=== PATIENT | male | born 1970 | race Caucasian/White ===

== ENCOUNTER 2018-07-09 01:00 | Inpatient (IN) | payer BC ==
--- NOTE | 2018-07-09 01:36 | C.PDOC ---
History Of Present Illness 48 year old male with PMHx of HLD, HTN, pre diabetes, presents to the ED c/o abdominal pain associated with nausea that started tonight at 20:30. Patient reports he ate [place] tonight and drank sparkling water, reporting symptoms brianna rtly after drinking the water. Patient states having a normal bowel movement today. Patient denies fever, chills, vomit, diarrhea, rash, headache, SOB, CP, weakness, numbness. <Paulette Lucero - Last Filed: 07/09/18 06:21> <Brandyn Beltrán - Last Filed: 07/09/18 06:13> History Per: Patient History/Exam Limitations: no limitations Onset/Duration Of Symptoms: Hrs (20:30) Context: Food Location Of Pain/Discomfort: Epigastric Radiation Of Pain To:: None Quality Of Discomfort: "Pain" Associated Symptoms: Nausea. denies: Vomiting, Diarrhea, Urinary Symptoms Exacerbating Factors: Food Last Bowel Movement: Today Recent travel outside of the [place]: No Additional History Per: Patient <Paulette Lucero - Last Filed: 07/09/18 06:21> Time Seen by Provider: 07/09/18 01:32 Chief Complaint (Nursing): Abdominal Pain Past Medical History Vital Signs: Last Vital Signs Temp 98.4 F 07/09/18 05:23 Pulse 85 07/09/18 05:23 Resp 20 07/09/18 05:23 BP 130/84 07/09/18 05:23 Pulse Ox 84 L 07/09/18 05:48 <Brandyn Beltrán - Last Filed: 07/09/18 06:13> Reviewed: Historical Data, Nursing Documentation, Vital Signs Vital Signs: Last Vital Signs Temp 98.2 F 07/09/18 01:10 Pulse 74 07/09/18 01:10 Resp 18 07/09/18 01:10 BP 163/97 H 07/09/18 01:10 Pulse Ox 84 L 07/09/18 01:10 Primary Care Provider: Cristofer Kelley - Medical History PMH: HTN, Hyperlipidemia Surgical History: No Surg Hx Family History: States: Unknown Family Hx - Social History Hx Alcohol Use: No Hx Substance Use: No <Paulette Lucero - Last Filed: 07/09/18 06:21> Review Of Systems Constitutional: Negative for: Fever, Chills Cardiovascular: Negative for: Chest Pain Respiratory: Negative for: Shortness of Breath Gastrointestinal: Positive for: Nausea, Abdominal Pain. Negative for: Vomiting, Diarrhea Skin: Negative for: Rash Neurological: Negative for: Weakness, Numbness, Headache, Dizziness <JazmineAbelardopierre - Last Filed: 07/09/18 06:21> Physical Exam - Physical Exam Appears: Non-toxic, No Acute Distress Skin: Normal Color, Warm, Dry Head: Atraumatic, Normacephalic Eye(s): bilateral: Normal Inspection, PERRL Ear(s): Bilateral: Normal Nose: No Discharge Oral Mucosa: Moist Tongue: Normal Appearing Lips: Normal Appearing Throat: No Erythema, No Exudate Neck: Normal ROM, Supple Chest: Symmetrical Cardiovascular: Rhythm Regular Respiratory: Normal Breath Sounds, No Rales, No Rhonchi, No Wheezing Gastrointestinal/Abdominal: Soft, Tenderness ( epigastric), No Distention, No Guarding, No Rebound Back: No CVA Tenderness Extremity: Normal ROM, No Tenderness, No Swelling Neurological/Psych: Oriented x3, Normal Speech, Normal Cognition, Normal Motor, Normal Sensation Gait: Steady <Paulette Lucero - Last Filed: 07/09/18 06:21> ED Course And Treatment - Laboratory Results Result Diagrams: 07/09/18 02:45 07/09/18 02:45 Lab Results: Total Bilirubin 0.9 mg/dL (0.2-1.3) 07/09/18 02:45 AST 59 U/L (17-59) 07/09/18 02:45 ALT 74 U/L (21-72) H 07/09/18 02:45 Alkaline Phosphatase 73 U/L (38-126) 07/09/18 02:45 Total Protein 8.6 g/dL (6.3-8.3) H 07/09/18 02:45 Albumin 4.9 g/dL (3.5-5.0) 07/09/18 02:45 Globulin 3.7 gm/dL (2.2-3.9) 07/09/18 02:45 Albumin/Globulin Ratio 1.3 (1.0-2.1) 07/09/18 02:45 Lipase 105 U/L (23-300) 07/09/18 02:45 <Brandyn Beltrán - Last Filed: 07/09/18 06:13> - Laboratory Results Result Diagrams: 07/09/18 02:45 07/09/18 02:45 O2 Sat by Pulse Oximetry: 84 Pulse Ox Interpretation: Normal - CT Scan/US CT abd/pelvis Other Rad Studies (CT/US): Read By Radiologist, Radiology Report Reviewed CT/US Interpretation: CT SCAN OF THE ABDOMEN AND PELVIS WITH CONTRAST. CLINICAL HISTORY: Epigastric pain. TECHNIQUE: Multiple axial and coronal CT images were obtained through the abdomen and pelvis after administration of intravenous contrast material. COMMENTS: Impacted gallstone in the neck of the distended, diffusely thickened enhancing gallbladder. The liver is of uniform attenuation without mass or defect. There is no intra or extrahepatic biliary ductal dilatation. The spleen is normal. The pancreas is of normal contour and attenuation characteristics. There is no evidence of adrenal mass. Both kidneys demonstrate prompt and equal nephrograms. The kidneys are normal in size, shape and configuration. There is no evidence of renal or ureteral mass. No renal or ureteral calculi are identified. There is no hydroureter or hydronephrosis. No evidence for appendicitis. There is no bowel wall thickening. No evidence for small or large bowel obstruction. There is no evidence of abdominal ascites or lymphadenopathy. There is no evidence of intrinsic or extrinsic bladder mass. There is no pelvic ascites or lymphadenopathy. Images of the lung bases show no evidence of pleural or parenchymal mass. There are no pleural effusions. The bony structures are free of lytic or blastic lesions. IMPRESSION: Mild changes of acute calculous cholecystitis. Thank you for your kind referral of this patient. . Electronically signed on July 09, 2018 4:52:49 AM EDT by: Duane Koch M.D., Certified by ABR, MSK, Neuroradiology. <Paulette Lucero - Last Filed: 07/09/18 06:21> Medical Decision Making Medical Decision Making: Plan: * Labs ordered * Pepcid 20 mg IVP * Zofran 8 mg IVP * patient reassessed- still in pain * Toradol IM given * labs reviewed * CT with IV contrast ordered pain reassessed: improved CT reviewed and revealed acute calculous cholecystitis Patient informed-Surgery consulted Patient will be admitted for further management Patient verbalized understanding and is stable <Paulette Lucero - Last Filed: 07/09/18 06:21> Disposition Discussed With Dr.: Srinivasa Sosa Comment: acceptd the pt [facility] is service and took over the care at 6:13AM Doctor Will See Patient In The: Hospital Counseled Patient/Family Regarding: Studies Performed, Diagnosis - Disposition Disposition Time: 06:13 - POA Present On Arrival: None Location Of Wound: acute cholecystitis <Brandyn Beltrán - Last Filed: 07/09/18 06:13> Counseled Patient/Family Regarding: Studies Performed, Diagnosis <Paulette Lucero - Last Filed: 07/09/18 06:21> - Disposition Disposition: HOSPITALIZED Condition: STABLE Forms: CAL - [employer] (Tunisian) - Clinical Impression Clinical Impression: Abdominal pain, Cholecystitis - PA / PACKAGING CLERK / Resident Statement MD/DO has reviewed & agrees with the documentation as recorded. - Scribe Statement The provider has reviewed the documentation as recorded by the Scribe Brent Carlos All medical record entries made by the Scribe were at my direction and personally dictated by me. I have reviewed the chart and agree that the record accurately reflects my personal performance of the history, physical exam, medical decision making, and the department course for this patient. I have also personally directed, reviewed, and agree with the discharge instructions and disposition. <Paulette Lucero - Last Filed: 07/09/18 06:21> Decision To Admit - Pt Status Changed To: Hospital Disposition Of: Inpatient - Admit Certification Admit to Inpatient:: After my assessment, the patient will require hospitalization for at least two midnights. This is because of the severity of symptoms shown, intensity of services needed, and/or the medical risk in this patient being treated as an outpatient. - InPatient: Physician Admission Certification:: After my assessment, the patient will require hospitalization for at least two midnights. This is because of the severity of symptoms shown, intensity of services needed, and/or the medical risk in this patient being treated as an outpatient. - . Bed Request Type: Regular Admitting Physician: Srinivasa Sosa <Brandyn Beltrán - Last Filed: 07/09/18 06:13> <Paulette Lucero - Last Filed: 07/09/18 06:21> - . Patient Diagnosis: Abdominal pain
[2018-07-09 02:51] LABS: BASO % 0.4 % (0.0-2.0); EOS # 0.1 K/uL (0.0-0.7); EOS % 1.4 % (0.0-4.0); HEMOGLOBIN 14.4 g/dL (12.0-18.0); LYMPH # 1.4 K/uL (1.0-4.3); LYMPH % 14.3 % (20.0-40.0); MEAN CELL VOLUME 84.6 fL (80.0-94.0); MEAN CORPUSCULAR HEMOGLOBIN 28.8 pg (27.0-31.0); MONO # 0.6 K/uL (0.0-0.8); MONO % 6.3 % (0.0-10.0); NEUT # 7.8 K/uL (1.8-7.0); NEUT % 77.6 % (50.0-75.0); RBC 5.01 Mil/uL (4.40-5.90); WHITE BLOOD COUNT 10.1 K/uL (4.8-10.8)
[2018-07-09 03:04] LABS: ALB/GLOB RATIO 1.3 (1.0-2.1); ALBUMIN 4.9 g/dL (3.5-5.0); ALT/SGPT 74 U/L (21-72); AST/SGOT 59 U/L (17-59); BLOOD UREA NITROGEN 14 mg/dL (9-20); CALCIUM 9.3 mg/dl (8.6-10.4); GFR NON-AFRICAN AMERICAN > 60; LIPASE 105 U/L (23-300)
[2018-07-09] MEDS ORDERED: Sodium Chloride 0.9% 1,000 ML IV ONE ×2 (03:24→06:17)
[2018-07-09] MEDS ORDERED: Iodixanol 320 MG/ML 100 ML BOTTLE IV ONE (03:33)
[2018-07-09] MEDS ORDERED: Sodium Chloride 0.9% 1,000 ML ONE ×2 (03:34→06:32)
[2018-07-09] MEDS ORDERED: Piperacillin/Tazobact 3.375 gm 100 ML IVPB STA (06:19)
[2018-07-09] MEDS ORDERED: Piperacillin/Tazobact 3.375 gm 100 ML IVPB ONE (06:32)
[2018-07-09] MEDS ORDERED: HYDROmorphone 1 mg/ml ISec IVP PRN ×2 (06:34→17:59)
--- NOTE | 2018-07-09 06:50 | CP.PCM.CON ---
History of Present Illness - History of Present Illness History of Present Illness: Surgery Consult Note- Dr. Lora Reason for Consult: r/o Acute Cholecystitis 48M pmhx significant for HTN, HLD, Gout, LEXIE on CPAP at night, Hypothyroidism, presents to [facility] ER with mid-epigastric pain that started late last night that woke him up from sleep. Similar pain in the past about one year ago. Pain is worsened with fatty foods i.e pizza. Last night patient had salmon. Denies fevers, chills, chest pain, shortness of breath. Denies recent sick contacts, foreign travel. Denies changes in bowel, bladder habits. 12 pt ROS conducted, negative otherwise stated above PMH: stated above PSH: TURP ALL: NKDA SocialHx: denies tobacco, etoh, recreational drug use FH: non-contributory Review of Systems - Review of Systems All systems: reviewed and no additional remarkable complaints except - Constitutional Constitutional: As Per HPI Past Patient History - Past Social History Smoking Status: Never Smoked - CARDIAC Hx Hypertension: Yes - MUSCULOSKELETAL/RHEUMATOLOGICAL Hx Gout: Yes - PSYCHIATRIC Hx Substance Use: No Meds Allergies/Adverse Reactions: Allergies Allergy/AdvReac Type Severity Reaction Status Date / Time No Known Allergies Allergy Verified 07/09/18 01:08 - Medications Medications: Current Medications Acetaminophen (Tylenol 325mg Tab) 650 mg PO Q4H PRN PRN Reason: Fever >100.4 F Hydromorphone HCl (Dilaudid) 1 mg IVP Q4H PRN PRN Reason: Pain, severe (8-10) Sodium Chloride (Sodium Chloride 0.9%) 1,000 mls @ 100 mls/hr IV .Q10H ONE Stop: 07/09/18 16:16 Last Admin: 07/09/18 06:38 Dose: 100 mls/hr Piperacillin Sod/Tazobactam Sod (Zosyn 3.375 In Ns 100ml) 100 mls @ 200 mls/hr IVPB STAT STA; Protocol Stop: 07/09/18 06:48 Last Admin: 07/09/18 06:37 Dose: 200 mls/hr Ondansetron HCl (Zofran Inj) 4 mg IVP Q4 PRN PRN Reason: Nausea/Vomiting Physical Exam - Eye Exam Eye Exam: EOMI. absent: Scleral icterus - ENT Exam ENT Exam: Mucous Membranes Moist - Respiratory Exam Respiratory Exam: NORMAL BREATHING PATTERN. absent: Accessory Muscle Use, Respiratory Distress - Cardiovascular Exam Cardiovascular Exam: REGULAR RHYTHM. absent: Bradycardia, Tachycardia - GI/Abdominal Exam GI & Abdominal Exam: Soft, Tenderness (tender to mid-epigastrum and RUQ). absent: Distended, Firm, Guarding, Hernia - Neurological Exam Neurological exam: Alert, Oriented x3 - Psychiatric Exam Psychiatric exam: Normal Affect - Skin Skin Exam: Intact, Warm Results - Vital Signs Recent Vital Signs: Last Vital Signs Temp 98.4 F 07/09/18 05:23 Pulse 85 07/09/18 05:23 Resp 20 07/09/18 05:23 BP 130/84 07/09/18 05:23 Pulse Ox 84 L 07/09/18 06:21 - Labs Result Diagrams: 07/09/18 02:45 07/09/18 02:45 Labs: Laboratory Results - last 24 hr 07/09/18 07/09/18 02:45 02:45 WBC 10.1 RBC 5.01 Hgb 14.4 Hct 42.4 MCV 84.6 MCH 28.8 MCHC 34.0 RDW 13.0 Plt Count 242 MPV 9.0 Neut % (Auto) 77.6 H Lymph % (Auto) 14.3 L [place] % (Auto) 6.3 Eos % (Auto) 1.4 Baso % (Auto) 0.4 Neut # (Auto) 7.8 H Lymph # (Auto) 1.4 [place] # (Auto) 0.6 Eos # (Auto) 0.1 Baso # (Auto) 0.0 Sodium 139 Potassium 3.9 Chloride 99 Carbon Dioxide 26 Anion Gap 17 BUN 14 Creatinine 1.0 Est GFR ( Amer) > 60 Est GFR (Non-Af Amer) > 60 Random Glucose 143 H Calcium 9.3 Total Bilirubin 0.9 AST 59 ALT 74 H Alkaline Phosphatase 73 Total Protein 8.6 H Albumin 4.9 Globulin 3.7 Albumin/Globulin Ratio 1.3 Lipase 105 Assessment & Plan - Assessment and Plan (Free Text) Assessment: 48M w/ Symptomatic Cholelithasis vs Acute Cholecystitis Plan: - NPO - IVF/Abx - Analgesia and anti-emetic PRN - Plan for Cholecystectomy tomorrow - f/u ABUS - d/w Dr. Lora Surgical attending [facility] PGY2
[2018-07-09] MEDS: Lactated Ringer's 1,000 ML IV SCH ×2 (07:27→15:39)
[2018-07-09] MEDS ORDERED: Levothyroxine 25 MCG TAB PO SCH (10:15)
--- NOTE | 2018-07-09 10:48 | US ---
Date of service: 07/09/2018 HISTORY: r/o Acute Tier[place] COMPARISON: Comparison is made with the previous CT of the abdomen and pelvis dated 07/09/2018 TECHNIQUE: Sonographic evaluation of the abdomen. FINDINGS: LIVER: Measures 15.9 cm. Heterogeneous increased echogenicity of the liver parenchyma. No mass. No intrahepatic bile duct dilatation. GALLBLADDER: Gallstones and sludge noted. The gallbladder wall is thick measures up to 3.9 millimeter. There is no sonographic Hoyt's sign noted during the exam. COMMON BILE DUCT: Measures 4.4. mm. . PANCREAS: Limited evaluation of the pancreas which obscured by overlying bowel gas. RIGHT KIDNEY: Measures 11.6 x 5 x 5.6cm. Normal echogenicity. No calculus, mass, or hydronephrosis. LEFT KIDNEY: Measures 12 x 5.2 x 5.3cm. Normal echogenicity. No calculus, mass, or hydronephrosis. SPLEEN: Normal in size and contour. No mass. AORTA: No aneurysmal dilatation. IVC: Unremarkable. OTHER FINDINGS: None. IMPRESSION: Gallstones and sludge associated with diffuse gallbladder wall thickening. The possibility of acute cholecystitis should be considered. Echogenic liver suggestive of hepatic steatosis.
[2018-07-09] MEDS: Levothyroxine 25 MCG TAB PO SCH (11:26)
--- NOTE | 2018-07-09 12:50 | RAD ---
Date of service: 07/09/2018 HISTORY: pre-op COMPARISON: No prior. TECHNIQUE: 1 view obtained. FINDINGS: LUNGS: No active pulmonary disease. PLEURA: No significant pleural effusion identified, no pneumothorax apparent. CARDIOVASCULAR: No aortic atherosclerotic calcification present. Normal cardiac size. No pulmonary vascular congestion. OSSEOUS STRUCTURES: No significant abnormalities. VISUALIZED UPPER ABDOMEN: Normal. OTHER FINDINGS: None. IMPRESSION: No active disease.
[2018-07-09] MEDS: Piperacill/Tazo 3.375gm in Dex 3.375 GM/50 ML BAG IVPB SCH ×2 (13:00→17:52)
--- NOTE | 2018-07-09 15:37 | CT ---
Date of service: 07/09/2018 PROCEDURE: CT Abdomen and Pelvis with contrast HISTORY: epigastric abd pain COMPARISON: No prior similar study available for comparison. TECHNIQUE: Contrast dose: 100 mL of Visipaque 320 intravenously. Radiation dose: Total exam DLP = 860.54 mGy-cm. This CT exam was performed using one or more of the following dose reduction techniques: Automated exposure control, adjustment of the mA and/or kV according to patient size, and/or use of iterative reconstruction technique. FINDINGS: LOWER THORAX: No evidence of acute pathology or pleural effusion. LIVER: Unremarkable. No gross lesion or ductal dilatation. GALLBLADDER AND BILE DUCTS: The gallbladder is distended contains gallstones and demonstrate moderate diffuse wall thickening. The possibility of acute cholecystitis should be considered. PANCREAS: Unremarkable. No gross lesion or ductal dilatation. SPLEEN: Unremarkable. ADRENALS: Unremarkable. No mass. KIDNEYS AND URETERS: Unremarkable. No hydronephrosis. No solid mass. VASCULATURE: Unremarkable. No aortic aneurysm. No aortic atherosclerotic calcification or mural plaque present. BOWEL: Unremarkable. No obstruction. No gross mural thickening. APPENDIX: Normal appendix. PERITONEUM: Unremarkable. No free fluid. No free air. LYMPH NODES: Unremarkable. No enlarged lymph nodes. BLADDER: Unremarkable. REPRODUCTIVE: Unremarkable. BONES: No acute fracture. OTHER FINDINGS: None. IMPRESSION: Gallstone and moderate diffuse gallbladder wall thickening. The possibility of acute cholecystitis should be considered. No evidence of intrahepatic or extrahepatic biliary ductal dilatation. Preliminary report was submitted by [facility] Radiology contains concordant findings
--- NOTE | 2018-07-09 22:06 | CP.PCM.HP ---
Present on Admission - Present on Admission Any Indicators Present on Admission: No Past Patient History - Past Social History Smoking Status: Never Smoked - CARDIAC Hx Hypertension: Yes - MUSCULOSKELETAL/RHEUMATOLOGICAL Hx Gout: Yes - PSYCHIATRIC Hx Substance Use: No Meds Allergies/Adverse Reactions: Allergies Allergy/AdvReac Type Severity Reaction Status Date / Time No Known Allergies Allergy Verified 07/09/18 01:08 Results - Vital Signs Recent Vital Signs: Last Vital Signs Temp 99.8 F H 07/09/18 15:00 Pulse 73 07/09/18 15:00 Resp 20 07/09/18 15:00 BP 112/67 07/09/18 17:50 Pulse Ox 97 07/09/18 15:00 - Labs Result Diagrams: 07/09/18 02:45 07/09/18 02:45 Labs: Laboratory Results - last 24 hr 07/09/18 07/09/18 07/09/18 02:45 02:45 11:04 WBC 10.1 RBC 5.01 Hgb 14.4 Hct 42.4 MCV 84.6 MCH 28.8 MCHC 34.0 RDW 13.0 Plt Count 242 MPV 9.0 Neut % (Auto) 77.6 H Lymph % (Auto) 14.3 L [place] % (Auto) 6.3 Eos % (Auto) 1.4 Baso % (Auto) 0.4 Neut # (Auto) 7.8 H Lymph # (Auto) 1.4 [place] # (Auto) 0.6 Eos # (Auto) 0.1 Baso # (Auto) 0.0 Sodium 139 Potassium 3.9 Chloride 99 Carbon Dioxide 26 Anion Gap 17 BUN 14 Creatinine 1.0 Est GFR ( Amer) > 60 Est GFR (Non-Af Amer) > 60 Random Glucose 143 H Calcium 9.3 Total Bilirubin 0.9 AST 59 ALT 74 H Alkaline Phosphatase 73 Total Protein 8.6 H Albumin 4.9 Globulin 3.7 Albumin/Globulin Ratio 1.3 Lipase 105 Blood Type O POSITIVE Antibody Screen Negative
[2018-07-10] MEDS: Lactated Ringer's 1,000 ML IV SCH ×2 (00:10→08:23)
[2018-07-10] MEDS: Piperacill/Tazo 3.375gm in Dex 3.375 GM/50 ML BAG IVPB SCH ×5 (00:21→23:09)
--- NOTE | 2018-07-10 05:42 | HP ---
CHIEF COMPLAINT: Right upper quadrant abdominal pain. HISTORY OF PRESENT ILLNESS: This is a 48-year-old [place] male with history of hypertension. He is obese. He came in because of right upper quadrant pain. According to the patient, his pain started yesterday. It was too sharp and intense, /10. The patient called, came to the emergency room immediately and he is hospitalized. The patient only remembers one episode few months ago. He had nausea. No vomiting. He has fever, chills, and rigors. He has sweating, diaphoresis, and dizziness. He denies any dysuria, hematuria, or pyuria. He denies any polyuria, polydipsia, or polyphagia. The patient woke up from sleep with this pain. The patient's pain is worse with fatty foods. The patient denies any cough, sore throat, or runny nose. The patient has fevers, chills, rigors, and body aches. PAST MEDICAL HISTORY: Hypertension. SOCIAL HISTORY: He is nonsmoker. Social ETOH user. CURRENT MEDICATIONS: He is on levothyroxine, Zyloprim, Coreg, and Lipitor. FAMILY HISTORY: Noncontributory. PHYSICAL EXAMINATION: GENERAL: A middle-aged male in no acute distress. VITAL SIGNS: Blood pressure 117/72, pulse 80, respiratory rate 16, temperature 102.8. SKIN: No rashes. No bruises. No bruises. No purpura. No petechiae. No ecchymosis. HEENT: Atraumatic and normocephalic. Negative pallor. Negative jaundice. Extraocular movements are intact. NECK: Supple. No JVD. No lymph nodes. No thyromegaly. CHEST WALL: Bilateral symmetrical expansion. No tenderness. LUNGS: Clear. CARDIOVASCULAR SYSTEM: No heave. No thrill. S1 and S2, regular. ABDOMEN: Right upper quadrant tenderness with guarding, rigidity, and rebound. Bowel sounds are normoactive and present. RECTAL: Negative. CENTRAL NERVOUS SYSTEM: Awake, alert, and oriented x3. ASSESSMENT: Acute cholecystitis. PLAN: Admit. Antibiotics. Surgical consult. OR. Srinivasa Sosa MD
[2018-07-10] MEDS: Levothyroxine 25 MCG TAB PO SCH (05:49)
[2018-07-10 06:37] LABS: BASO % 0.2 % (0.0-2.0); HEMOGLOBIN 12.9 g/dL (12.0-18.0); LYMPH # 1.2 K/uL (1.0-4.3); LYMPH % 8.4 % (20.0-40.0); MEAN CELL VOLUME 82.7 fL (80.0-94.0); MEAN CORPUSCULAR HEMOGLOBIN 28.6 pg (27.0-31.0); MEAN CORPUSCULAR HGB CONC 34.5 g/dL (33.0-37.0); MEAN PLATELET VOLUME 8.9 fL (7.2-11.7); MONO # 1.5 K/uL (0.0-0.8); MONO % 10.4 % (0.0-10.0); NEUT # 11.4 K/uL (1.8-7.0); PLATELET COUNT 163 K/uL (130-400); RBC 4.53 Mil/uL (4.40-5.90); RED CELL DISTRIBUTION WIDTH 13.2 % (11.5-14.5)
[2018-07-10 06:44] LABS: INR 1.4; PARTIAL THROMBOPLASTIN TIME 35.1 SECONDS (21-34); PROTHROMBIN TIME 15.3 SECONDS (9.7-12.2)
[2018-07-10 06:45] LABS: ALB/GLOB RATIO 1.2 (1.0-2.1); ALT/SGPT 55 U/L (21-72); AST/SGOT 42 U/L (17-59); BLOOD UREA NITROGEN 10 mg/dL (9-20); CALCIUM 8.7 mg/dl (8.6-10.4); GFR NON-AFRICAN AMERICAN > 60
[2018-07-10 08:45] LABS: BANDS 1 % (0-2); LYMPHOCYTE 14 % (20-40); MONOCYTE 5 % (0-10); NEUTROPHIL 80 % (50-75); TOTAL CELLS COUNTED 100
[2018-07-10 08:46] LABS: PLATELET ESTIMATE NORMAL (NORMAL)
[2018-07-10] MEDS ORDERED: Propofol 10 mg/ml Inj (20 ML) ONE (12:24)
[2018-07-10] MEDS ORDERED: Rocuronium 10 mg/ml (5 ml) ONE (12:25)
[2018-07-10] MEDS ORDERED: Succinylcholine Chloride 20 mg/ml Syr (5 ml) IV ONE (12:25)
[2018-07-10] MEDS ORDERED: Midazolam 2 MG/2 ML VIAL ONE (12:26)
[2018-07-10] MEDS: Bupivacaine 0.5%/Epi 1:200,000 (10 ML SOL) ONE ×2 (12:34→12:35)
[2018-07-10] MEDS ORDERED: Neostigmine 1:1000 (1 mg/ml) Inj ONE (13:33)
[2018-07-10] MEDS ORDERED: ePHEDrine 50 mg/ml Inj ONE (13:37)
[2018-07-10] MEDS ORDERED: oxyCODONE 5 mg Immediate Release Tab PO PRN (13:54)
[2018-07-10] MEDS ORDERED: HYDROmorphone 0.5 mg/0.5 ml ISec IVP PRN (13:58)
--- NOTE | 2018-07-10 14:57 | PCM.SURG1 ---
Surgeon's Initial Post Op Note - Surgeon's Notes Surgeon: Dr. Lora Earth Mover: Dr. Rosado Type of Anesthesia: General Endo Anesthesia Administered By: Dr. Negrete Pre-Operative Diagnosis: symptomatic cholelithiasis Operative Findings: see operative dictation - intra-op decompression of gallbladder, incidental right inguinal hernia found upon inspection Post-Operative Diagnosis: same Operation Performed: laparoscopic cholecystectomy Specimen/Specimens Removed: gallbladder Estimated Blood Loss: EBL {In ML}: 30 Blood Products Given: N/A Drains Used: No Drains Post-Op Condition: Good Date of Surgery/Procedure: 07/10/18 Time of Surgery/Procedure: 14:57
--- NOTE | 2018-07-10 20:45 | CARD ---
APPROVED REPORT Date of service: 07/09/2018 EKG Measurement Heart [id number] <Conclusion> Normal sinus rhythm Normal ECG
--- NOTE | 2018-07-10 22:18 | CP.PCM.PN ---
Subjective - Date & Time of Evaluation Date of Evaluation: 07/10/18 Time of Evaluation: 08:00 - Subjective Subjective: dict Objective - Vital Signs/Intake and Output Vital Signs (last 24 hours): Temp Pulse Resp BP Pulse Ox 101 F H 73 18 113/73 95 07/10/18 21:32 07/10/18 17:36 07/10/18 16:15 07/10/18 17:19 07/10/18 16:15 Intake and Output: 07/10/18 07/11/18 18:59 06:59 Intake Total 1250 Balance 1250 - Medications Medications: Current Medications Acetaminophen (Tylenol 325mg Tab) 650 mg PO Q4H PRN PRN Reason: Fever >100.4 F Last Admin: 07/10/18 21:32 Dose: 650 mg Allopurinol (Zyloprim) 100 mg PO DAILY [facility] Last Admin: 07/10/18 10:05 Dose: 100 mg Carvedilol (Coreg) 25 mg PO BID [facility] Last Admin: 07/10/18 17:19 Dose: Not Given Piperacillin Sod/Tazobactam Sod (Zosyn 3.375 Gm Iv Premix) 3.375 gm in 50 mls @ 200 mls/hr IVPB Q6H [facility]; Protocol Last Admin: 07/10/18 17:21 Dose: 200 mls/hr Levothyroxine Sodium (Synthroid) 25 mcg PO DAILY@0630 [facility] Last Admin: 07/10/18 05:49 Dose: 25 mcg Ondansetron HCl (Zofran Inj) 4 mg IVP Q4 PRN PRN Reason: Nausea/Vomiting Oxycodone HCl (Oxycodone Immediate Release Tab) 5 mg PO Q6 PRN PRN Reason: Pain, severe (8-10) Rosuvastatin Calcium (Crestor) 5 mg PO HS [facility] Last Admin: 07/10/18 21:30 Dose: 5 mg Tramadol HCl (Ultram) 50 mg PO Q8H PRN PRN Reason: Pain, moderate (4-7) - Labs Labs: 07/10/18 06:17 07/10/18 06:17 PT 15.3 SECONDS (9.7-12.2) H 07/10/18 06:17 INR 1.4 07/10/18 06:17 APTT 35.1 SECONDS (21-34) H 07/10/18 06:17
--- NOTE | 2018-07-11 03:41 | PN ---
DATE: 07/10/2018 SUBJECTIVE: The patient is for OR today. He has low-grade fevers, nausea, right upper quadrant pain. PHYSICAL EXAMINATION: VITAL SIGNS: Blood pressure 113/73, pulse 73, respiratory rate 20, temperature 101. LUNGS: Clear. ABDOMEN: Right upper quadrant tenderness. ASSESSMENT: Acute cholecystitis. PLAN: OR. Monitor the patient. Srinivasa Sosa MD
[2018-07-11] MEDS: Piperacill/Tazo 3.375gm in Dex 3.375 GM/50 ML BAG IVPB SCH ×4 (05:26→23:55)
[2018-07-11] MEDS: Levothyroxine 25 MCG TAB PO SCH (05:30)
[2018-07-11 07:05] LABS: BLOOD UREA NITROGEN 14 mg/dL (9-20); CALCIUM 8.7 mg/dl (8.6-10.4); GFR NON-AFRICAN AMERICAN > 60
[2018-07-11 07:06] LABS: BASO % 0.3 % (0.0-2.0); HEMOGLOBIN 12.3 g/dL (12.0-18.0); LYMPH # 0.8 K/uL (1.0-4.3); LYMPH % 6.5 % (20.0-40.0); MEAN CELL VOLUME 83.6 fL (80.0-94.0); MEAN CORPUSCULAR HEMOGLOBIN 28.3 pg (27.0-31.0); MEAN CORPUSCULAR HGB CONC 33.9 g/dL (33.0-37.0); MEAN PLATELET VOLUME 8.8 fL (7.2-11.7); MONO % 8.3 % (0.0-10.0); NEUT # 10.5 K/uL (1.8-7.0); NEUT % 84.9 % (50.0-75.0); NRBC % 0.1 % (0.0-2.0); PLATELET COUNT 158 K/uL (130-400); RBC 4.33 Mil/uL (4.40-5.90); RED CELL DISTRIBUTION WIDTH 13.1 % (11.5-14.5); WHITE BLOOD COUNT 12.3 K/uL (4.8-10.8)
[2018-07-11 08:34] LABS: INR 1.3; PROTHROMBIN TIME 14.3 SECONDS (9.7-12.2)
[2018-07-11 08:35] LABS: PARTIAL THROMBOPLASTIN TIME 36.5 SECONDS (21-34)
[2018-07-11] MEDS ORDERED: Potassium Chloride 20 mEq ER Tab PO ONE (10:00)
[2018-07-11 10:28] LABS: LYMPHOCYTE 11 % (20-40); MONOCYTE 7 % (0-10); NEUTROPHIL 82 % (50-75); PLATELET ESTIMATE NORMAL (NORMAL); TOTAL CELLS COUNTED 100
--- NOTE | 2018-07-11 10:32 | CP.PCM.PN ---
Subjective - Date & Time of Evaluation Date of Evaluation: 07/11/18 Time of Evaluation: 10:30 - Subjective Subjective: Surgery Progress Note for Dr. Lora 48M seen and evaluated at bedside this morning. Patient had tmax of 102 yesterday, improved with Tylenol administration. This morning, patient is doing well, tolerating diet, ambulating, voiding, passing flatus. Minimal abdominal pain around surgical sites. Denies chills, n/v/d, SOB, CP, or urinary symptoms. Objective - Vital Signs/Intake and Output Vital Signs (last 24 hours): Temp Pulse Resp BP Pulse Ox 98.1 F 82 20 122/81 96 07/11/18 08:00 07/11/18 09:03 07/11/18 08:00 07/11/18 09:04 07/11/18 08:00 Intake and Output: 07/11/18 07/11/18 06:59 18:59 Intake Total 340 Balance 340 - Medications Medications: Current Medications Acetaminophen (Tylenol 325mg Tab) 650 mg PO Q4H PRN PRN Reason: Fever >100.4 F Last Admin: 07/11/18 05:32 Dose: 650 mg Allopurinol (Zyloprim) 100 mg PO DAILY [facility] Last Admin: 07/11/18 09:04 Dose: 100 mg Carvedilol (Coreg) 25 mg PO BID [facility] Last Admin: 07/11/18 09:04 Dose: 25 mg Piperacillin Sod/Tazobactam Sod (Zosyn 3.375 Gm Iv Premix) 3.375 gm in 50 mls @ 200 mls/hr IVPB Q6H [facility]; Protocol Last Admin: 07/11/18 05:26 Dose: 200 mls/hr Levothyroxine Sodium (Synthroid) 25 mcg PO DAILY@0630 [facility] Last Admin: 07/10/18 05:49 Dose: 25 mcg Ondansetron HCl (Zofran Inj) 4 mg IVP Q4 PRN PRN Reason: Nausea/Vomiting Oxycodone HCl (Oxycodone Immediate Release Tab) 5 mg PO Q6 PRN PRN Reason: Pain, severe (8-10) Rosuvastatin Calcium (Crestor) 5 mg PO HS [facility] Last Admin: 07/10/18 21:30 Dose: 5 mg Tramadol HCl (Ultram) 50 mg PO Q8H PRN PRN Reason: Pain, moderate (4-7) - Labs Labs: 07/11/18 06:44 07/11/18 06:44 PT 14.3 SECONDS (9.7-12.2) H 07/11/18 06:44 INR 1.3 07/11/18 06:44 APTT 36.5 SECONDS (21-34) H 07/11/18 06:44 - Constitutional Appears: Well, Non-toxic, No Acute Distress - Head Exam Head Exam: ATRAUMATIC, NORMAL INSPECTION, NORMOCEPHALIC - Eye Exam Eye Exam: EOMI Pupil Exam: PERRL - ENT Exam ENT Exam: Mucous Membranes Moist - Respiratory Exam Respiratory Exam: NORMAL BREATHING PATTERN. absent: Wheezes, Respiratory Distress - GI/Abdominal Exam GI & Abdominal Exam: Soft, Tenderness, Normal Bowel Sounds. absent: Distended, Guarding, Rebound - Neurological Exam Neurological Exam: Alert, Awake, Oriented x3 - Psychiatric Exam Psychiatric exam: Normal Affect, Normal Mood - Skin Skin Exam: Dry, Intact, Normal Color, Warm Additional comments: surgical incision sites c/d/i Assessment and Plan - Assessment and Plan (Free Text) Assessment: 48M s/p laparoscopic cholecystectomy POD1 Plan: Continue IV Abx Regular diet as tolerated Antiemetics and analgesics PRN Encourage ambulation/OOBTC/IS use Monitor for fevers Further recs per Dr. Guido Rosado PGY1
[2018-07-11] MEDS ORDERED: Gentamicin 160 MG in Sodium Chloride 0.9% 100 ML IVPB ONE (21:00)
--- NOTE | 2018-07-11 21:25 | CP.PCM.CON ---
History of Present Illness - History of Present Illness History of Present Illness: INFECTIOUS DISEASE CONSULT. REASON FOR CONSULT; POST OPT FEVERS S/P LAP. CHOLYCYSTECTOMY. HPI. 48M pmhx significant for HTN, HLD, Gout, LEXIE on CPAP at night, Hypothyroidism, presents to [facility] ER with mid-epigastric pain that started late last night on day of admission,that woke him up from sleep. Similar pain in the past about one year ago. Pain is worsened with fatty foods i.e pizza. pt had SALMON THAT NIGHT AND THE PAIN STARTED. W/U - CT ABDOMEN AND PELVIS W IV CONTRAST SHOWED DISTENDED GALL BLADDER WITH SLUDGE AND STONES CONFIRMED WITH ABD US. PT IS POD #1 S/P LAPRASCOPIC CHOLYCYSTECTOMY 07/10/18. PT C/O ABDOMINAL PAIN AND BLOATING.DENIES COUGH,SOB,CHESTPAIN . INFECTIOUS DISEASE CONSULTED FOR PERSISTANT FEVERS TO 102-101.9 INSPITE OF TYLENOL POST LAPRASCOPIC CHOLYCYSTECTOMY 04/12/18 PMH: stated above PSH: TURP ALL: NKDA SocialHx: denies tobacco, etoh, recreational drug use FH: non-contributory Review of Systems - Constitutional Constitutional: Chills, Fever - EENT Nose/Mouth/Throat: Dry Mouth. absent: Nasal Congestion, Mouth Lesions - Cardiovascular Cardiovascular: absent: Dyspnea - Respiratory Respiratory: absent: Cough - Gastrointestinal Gastrointestinal: Abdominal Pain (POST OP). absent: Nausea, Vomiting - Genitourinary Genitourinary: absent: Dysuria, Hx Renal/Bladder Calculi (S/P TURP) - Neurological Neurological: absent: Dizziness, Headaches - Hematologic/Lymphatic Hematologic: As Per HPI. absent: Easy Bleeding, Easy Bruising Past Patient History - Past Social History Smoking Status: Never Smoked - CARDIAC Hx Hypertension: Yes - MUSCULOSKELETAL/RHEUMATOLOGICAL Hx Gout: Yes - PSYCHIATRIC Hx Substance Use: No Meds Allergies/Adverse Reactions: Allergies Allergy/AdvReac Type Severity Reaction Status Date / Time No Known Allergies Allergy Verified 07/09/18 01:08 - Medications Medications: Current Medications Acetaminophen (Tylenol 325mg Tab) 650 mg PO Q4H PRN PRN Reason: Fever >100.4 F Last Admin: 07/11/18 16:14 Dose: 650 mg Allopurinol (Zyloprim) 100 mg PO DAILY [facility] Last Admin: 07/11/18 09:04 Dose: 100 mg Carvedilol (Coreg) 25 mg PO BID [facility] Last Admin: 07/11/18 17:40 Dose: 25 mg Piperacillin Sod/Tazobactam Sod (Zosyn 3.375 Gm Iv Premix) 3.375 gm in 50 mls @ 200 mls/hr IVPB Q6H [facility]; Protocol Last Admin: 07/11/18 17:41 Dose: 200 mls/hr Gentamicin Sulfate 160 mg/ (Sodium Chloride) 104 mls @ 100 mls/hr IVPB ONCE ONE; Protocol Stop: 07/11/18 22:02 Levothyroxine Sodium (Synthroid) 25 mcg PO DAILY@0630 [facility] Last Admin: 07/10/18 05:49 Dose: 25 mcg Ondansetron HCl (Zofran Inj) 4 mg IVP Q4 PRN PRN Reason: Nausea/Vomiting Oxycodone HCl (Oxycodone Immediate Release Tab) 5 mg PO Q6 PRN PRN Reason: Pain, severe (8-10) Rosuvastatin Calcium (Crestor) 5 mg PO HS [facility] Last Admin: 07/10/18 21:30 Dose: 5 mg Tramadol HCl (Ultram) 50 mg PO Q8H PRN PRN Reason: Pain, moderate (4-7) Physical Exam - Constitutional Appears: No Acute Distress - Head Exam Head Exam: NORMAL INSPECTION - Eye Exam Eye Exam: EOMI, PERRL. absent: Scleral icterus - ENT Exam ENT Exam: Normal Oropharynx - Neck Exam Neck exam: Positive for: Normal Inspection - Respiratory Exam Respiratory Exam: Clear to Auscultation Bilateral, NORMAL BREATHING PATTERN - Cardiovascular Exam Cardiovascular Exam: Tachycardia, REGULAR RHYTHM, +S1, +S2 - GI/Abdominal Exam GI & Abdominal Exam: Hypoactive Bowel Sounds, Rigid (OPT WOUND C/D/I), Soft, Tenderness (RUQ) - Extremities Exam Extremities exam: Positive for: normal capillary refill. Negative for: calf tenderness, pedal edema - Neurological Exam Neurological exam: Alert, CN II-XII Intact, Oriented x3, Reflexes Normal - Psychiatric Exam Psychiatric exam: Normal Mood - Skin Skin Exam: Normal Color, Warm Results - Vital Signs Recent Vital Signs: Last Vital Signs Temp 98.7 F 07/11/18 21:23 Pulse 83 07/11/18 15:00 Resp 20 07/11/18 15:00 BP 133/80 07/11/18 17:40 Pulse Ox 95 07/11/18 15:00 - Labs Result Diagrams: 07/11/18 06:44 07/11/18 06:44 Labs: Laboratory Results - last 24 hr 07/11/18 07/11/18 07/11/18 06:44 06:44 06:44 WBC 12.3 H RBC 4.33 L Hgb 12.3 Hct 36.2 MCV 83.6 MCH 28.3 MCHC 33.9 RDW 13.1 Plt Count 158 MPV 8.8 Neut % (Auto) 84.9 H Lymph % (Auto) 6.5 L [place] % (Auto) 8.3 Eos % (Auto) 0.0 Baso % (Auto) 0.3 Neut # (Auto) 10.5 H Lymph # (Auto) 0.8 L [place] # (Auto) 1.0 H Eos # (Auto) 0.0 Baso # (Auto) 0.0 Neutrophils % (Manual) 82 H Lymphocytes % (Manual) 11 L Monocytes % (Manual) 7 Platelet Estimate Normal RBC Morphology Normal PT 14.3 H INR 1.3 APTT 36.5 H Sodium 134 Potassium 3.3 L Chloride 100 Carbon Dioxide 26 Anion Gap 11 BUN 14 Creatinine 1.0 Est GFR ( Amer) > 60 Est GFR (Non-Af Amer) > 60 Random Glucose 124 H Calcium 8.7 Assessment & Plan (1) Postoperative fever Assessment and Plan: S/P CHOLYCYSTECTOMY 07/10/18 PICKARD-CULTURE. CXR ORDERED CONTINUE IV ZOSYN 3.375MG IVPB Q 6HRLY. 07/09/18 ADD IV GENTAMYCIN 160MG IVPB STAT DOSEAFTER BLOOD CULTURES. 07/11/18 F/U 8OMG IVPB Q 8HRLY FOR PSEUDOMONAL COVERAGE. F/O CBC W DIFF, CMP LFTS IN AM . F/U CXR Status: Acute (2) Abdominal pain Assessment and Plan: ANALGESICS PER SURGERY. Status: Acute (3) Cholecystitis Assessment and Plan: POST. OPTIVE DAY #1 Status: Acute
--- NOTE | 2018-07-11 22:30 | CP.PCM.PN ---
Subjective - Date & Time of Evaluation Date of Evaluation: 07/11/18 Time of Evaluation: 08:20 - Subjective Subjective: dict Objective - Vital Signs/Intake and Output Vital Signs (last 24 hours): Temp Pulse Resp BP Pulse Ox 98.7 F 83 20 133/80 95 07/11/18 21:23 07/11/18 15:00 07/11/18 15:00 07/11/18 17:40 07/11/18 15:00 - Medications Medications: Current Medications Acetaminophen (Tylenol 325mg Tab) 650 mg PO Q4H PRN PRN Reason: Fever >100.4 F Last Admin: 07/11/18 16:14 Dose: 650 mg Allopurinol (Zyloprim) 100 mg PO DAILY [facility] Last Admin: 07/11/18 09:04 Dose: 100 mg Carvedilol (Coreg) 25 mg PO BID [facility] Last Admin: 07/11/18 17:40 Dose: 25 mg Piperacillin Sod/Tazobactam Sod (Zosyn 3.375 Gm Iv Premix) 3.375 gm in 50 mls @ 200 mls/hr IVPB Q6H [facility]; Protocol Last Admin: 07/11/18 17:41 Dose: 200 mls/hr Levothyroxine Sodium (Synthroid) 25 mcg PO DAILY@0630 [facility] Last Admin: 07/10/18 05:49 Dose: 25 mcg Ondansetron HCl (Zofran Inj) 4 mg IVP Q4 PRN PRN Reason: Nausea/Vomiting Oxycodone HCl (Oxycodone Immediate Release Tab) 5 mg PO Q6 PRN PRN Reason: Pain, severe (8-10) Rosuvastatin Calcium (Crestor) 5 mg PO HS [facility] Last Admin: 07/11/18 21:39 Dose: 5 mg Tramadol HCl (Ultram) 50 mg PO Q8H PRN PRN Reason: Pain, moderate (4-7) - Labs Labs: 07/11/18 06:44 07/11/18 06:44 PT 14.3 SECONDS (9.7-12.2) H 07/11/18 06:44 INR 1.3 07/11/18 06:44 APTT 36.5 SECONDS (21-34) H 07/11/18 06:44
[2018-07-12] MEDS: Piperacill/Tazo 3.375gm in Dex 3.375 GM/50 ML BAG IVPB SCH ×4 (05:17→23:51)
[2018-07-12] MEDS: Levothyroxine 25 MCG TAB PO SCH (05:29)
--- NOTE | 2018-07-12 05:48 | OP ---
PROCEDURE DATE: 07/10/2018 PROCEDURE: Laparoscopic cholecystectomy. SURGEON: Bk Lora MD SHOWER MAID: Buzz Rosado DO, PGY-1 ANESTHESIA: General. ANESTHESIOLOGIST: Marshall Guy MD PREOPERATIVE DIAGNOSIS: Symptomatic cholelithiasis. POSTOPERATIVE DIAGNOSIS: Symptomatic cholelithiasis. INDICATIONS: This is a 48-year-old male who presented with mid epigastric pain that worsened with fatty foods. These symptoms have been ongoing for over a year. Appropriate workup including thorough history and physical, lab, and imaging were performed confirming the presence of large gallstones with diffuse gallbladder wall thickening. A cholecystectomy was indicated and recommended at this time with the patient medically optimized. The risks, benefits, and surgery rationale were explained. Informed consent was obtained with nurse at bedside as witness. DESCRIPTION OF PROCEDURE: The patient was taken to the operating room and placed on the table in supine position with the left arm tucked in. Time-out was performed to verify correct patient, procedure, site, and additional critical information prior to beginning the procedure. The patient received Zosyn preoperatively. General anesthesia was initiated, and the patient was intubated. The patient was then prepped and draped in a sterile fashion. A Veress needle was inserted through the umbilicus. The abdomen was insufflated with CO2 to a pressure of 15 mmHg to achieve pneumoperitoneum. The patient tolerated insufflation well. An umbilical incision was made, and a 12-mm trocar was then inserted at the umbilicus using the Visiport. The laparoscope was inserted under direct vision, and the abdomen was inspected to ensure no injuries occurred with the initial port placement. Additional ports were placed as follows: A 5-mm subxiphoid port and a 5-mm port along the right subcostal margin along with local anesthetic. Inspection of the gallbladder showed fibrotic changes with edema and friable tissue as well as hydrops. The gallbladder was subsequently decompressed. The table was placed in reverse Trendelenburg with the right side up. The gallbladder was then grasped and retracted caudally. Dissection was done to expose Calot's triangle. Peritoneum overlying the infundibulum was incised and stripped inferiorly. The cystic duct and cystic artery were identified and dissected until the critical view of safety was obtained. The cystic duct and cystic artery were then doubly clipped and divided. Gallbladder was dissected off the liver bed, and hemostasis was achieved primarily with the use of cautery. There was no leakage of bile from the cystic duct stump. The gallbladder was placed in an EndoCatch retrieval bag and removed through the umbilical incision. Specimen was sent to Pathology. Thorough irrigation was performed. The gallbladder fossa was again visualized with no signs of bleeding. Hemostasis was achieved. Full inspection of the abdominal cavity was done. At that time, there was noted to be a right inguinal hernia as well. Ports were then removed under direct supervision with no bleeding noted at trocar sites, and the abdomen was deflated. A 0 Vicryl on an UR-6 needle was used to close the fascia at the umbilical port site. The skin of all incisions was reapproximated with a subcuticular 4-0 Monocryl and Dermabond. The operative field was cleaned and dried. Island dressings were applied. No intraoperative complications were encountered. All instrument, sutures, and sponge counts were correct. The patient was extubated in the OR and transferred to PACU in stable condition. Buzz Rosado D.O. Bk Lora MD MTDD
--- NOTE | 2018-07-12 06:52 | PN ---
DATE: 07/11/2018 SUBJECTIVE: The patient remains febrile. He is not toxic. He is not in distress. He is post OR. Wounds are clean. No drainage. PHYSICAL EXAMINATION: VITAL SIGNS: Temperature 101.6, pulse 88, respiratory rate 20, blood pressure 133/80. LUNGS: Clear. ABDOMEN: Soft, nontender. Bowel sound are positive. ASSESSMENT: 1. Cholecystitis, continue current medication. 2. Fever. It is most likely due to cholecystitis but we need to monitor the patient for any other source of sepsis including septicemia. PLAN: Continue antibiotics and infectious disease consult. Srinivasa Sosa MD
[2018-07-12 07:57] LABS: HEMOGLOBIN 12.3 g/dL (12.0-18.0); MEAN CELL VOLUME 83.2 fL (80.0-94.0); MEAN CORPUSCULAR HEMOGLOBIN 28.8 pg (27.0-31.0); MEAN CORPUSCULAR HGB CONC 34.6 g/dL (33.0-37.0); MEAN PLATELET VOLUME 8.8 fL (7.2-11.7); RBC 4.27 Mil/uL (4.40-5.90); RED CELL DISTRIBUTION WIDTH 12.9 % (11.5-14.5)
[2018-07-12 08:21] LABS: ALB/GLOB RATIO 1.1 (1.0-2.1); ALT/SGPT 116 U/L (21-72); AST/SGOT 113 U/L (17-59); BILIRUBIN,DIRECT 1.2 mg/dL (0.0-0.4); BLOOD UREA NITROGEN 10 mg/dL (9-20); CALCIUM 8.3 mg/dl (8.6-10.4); GFR NON-AFRICAN AMERICAN > 60
--- NOTE | 2018-07-12 09:24 | RAD ---
Chest x-ray single frontal view HISTORY: Febrile. Comparison: 07/09/2018 Findings: Diffuse increased interstitial lung markings. Patchy increased markings at both lung bases; left greater than right suggestive for atelectasis and or infiltrate. Additional patchy consolidative change in the right infrahilar region. Elevated right hemidiaphragm. Cardiomegaly. Degenerative changes in the spine. Impression: Patchy bibasilar airspace consolidation which may represent underlying atelectasis and or infiltrate. Clinical correlation.
[2018-07-12] MEDS: Enoxaparin 40 mg Syringe SC SCH (09:41)
--- NOTE | 2018-07-12 11:42 | CP.PCM.PN ---
Subjective - Date & Time of Evaluation Date of Evaluation: 07/12/18 Time of Evaluation: 11:40 - Subjective Subjective: General surgery progress note for Dr. Joshua Cesar, PGY-2 Pt seen/examined at bedside Pt resting comfortably in bed. Abdominal pain well controlled. Pt reports some nausea with eating a lot of solid foods, however no nausea with liquids. Had fevers yesterday afternoon. Denies chills, CP, SOB. Objective - Vital Signs/Intake and Output Vital Signs (last 24 hours): Temp Pulse Resp BP Pulse Ox 98.5 F 77 18 135/88 97 07/12/18 08:25 07/12/18 08:25 07/12/18 08:25 07/12/18 09:43 07/12/18 08:25 Intake and Output: 07/12/18 07/12/18 06:59 18:59 Intake Total 200 Balance 200 - Medications Medications: Current Medications Acetaminophen (Tylenol 325mg Tab) 650 mg PO Q4H PRN PRN Reason: Fever >100.4 F Last Admin: 07/11/18 16:14 Dose: 650 mg Allopurinol (Zyloprim) 100 mg PO DAILY [facility] Last Admin: 07/12/18 09:42 Dose: 100 mg Carvedilol (Coreg) 25 mg PO BID [facility] Last Admin: 07/12/18 09:43 Dose: 25 mg Enoxaparin Sodium (Lovenox) 40 mg SC DAILY [facility] Last Admin: 07/12/18 09:41 Dose: 40 mg Piperacillin Sod/Tazobactam Sod (Zosyn 3.375 Gm Iv Premix) 3.375 gm in 50 mls @ 200 mls/hr IVPB Q6H [facility]; Protocol Last Admin: 07/12/18 11:15 Dose: 200 mls/hr Gentamicin Sulfate 80 mg/ (Sodium Chloride) 102 mls @ 100 mls/hr IVPB Q8H [facility]; Protocol Last Admin: 07/12/18 04:37 Dose: 100 mls/hr Levothyroxine Sodium (Synthroid) 25 mcg PO DAILY@0630 [facility] Last Admin: 07/12/18 05:29 Dose: 25 mcg Ondansetron HCl (Zofran Inj) 4 mg IVP Q4 PRN PRN Reason: Nausea/Vomiting Oxycodone HCl (Oxycodone Immediate Release Tab) 5 mg PO Q6 PRN PRN Reason: Pain, severe (8-10) Rosuvastatin Calcium (Crestor) 5 mg PO HS [facility] Last Admin: 07/11/18 21:39 Dose: 5 mg Tramadol HCl (Ultram) 50 mg PO Q8H PRN PRN Reason: Pain, moderate (4-7) - Labs Labs: 07/12/18 07:46 07/12/18 07:46 PT 14.3 SECONDS (9.7-12.2) H 07/11/18 06:44 INR 1.3 07/11/18 06:44 APTT 36.5 SECONDS (21-34) H 07/11/18 06:44 - Constitutional Appears: Non-toxic, No Acute Distress - Head Exam Head Exam: ATRAUMATIC, NORMAL INSPECTION, NORMOCEPHALIC - Eye Exam Eye Exam: EOMI, Normal appearance - ENT Exam ENT Exam: Mucous Membranes Moist, Normal Exam - Respiratory Exam Respiratory Exam: NORMAL BREATHING PATTERN - Cardiovascular Exam Cardiovascular Exam: REGULAR RHYTHM, +S1, +S2 - GI/Abdominal Exam GI & Abdominal Exam: Soft. absent: Distended, Firm, Guarding, Tenderness - Extremities Exam Extremities Exam: Normal Inspection - Neurological Exam Neurological Exam: Alert, Awake, CN II-XII Intact, Oriented x3 - Psychiatric Exam Psychiatric exam: Normal Affect, Normal Mood - Skin Skin Exam: Intact, Normal Color, Warm Additional comments: abdomen with small island dressings over surgical sites - clean/dry/intact Assessment and Plan - Assessment and Plan (Free Text) Assessment: 48M s/p laparoscopic cholecystectomy POD2 Plan: Continue IV Abx Regular diet as tolerated Antiemetics and analgesics PRN Encourage ambulation OOBTC Encourage IS use Monitor for fevers Pt will be cleared for d/c from surgical standpoint when patient is afebrile for 24hrs Further recs per Dr. Lora Will DW Dr. Guido Cesar, PGY-2
[2018-07-12 14:15] LABS: BASO % 0.2 % (0.0-2.0); EOS % 0.2 % (0.0-4.0); LYMPH # 1.2 K/uL (1.0-4.3); LYMPH % 14.1 % (20.0-40.0); MEAN CELL VOLUME 83.5 fL (80.0-94.0); MEAN CORPUSCULAR HEMOGLOBIN 28.7 pg (27.0-31.0); MEAN CORPUSCULAR HGB CONC 34.4 g/dL (33.0-37.0); MEAN PLATELET VOLUME 8.7 fL (7.2-11.7); MONO # 0.9 K/uL (0.0-0.8); MONO % 9.7 % (0.0-10.0); NEUT # 6.6 K/uL (1.8-7.0); NEUT % 75.8 % (50.0-75.0); NRBC % 0.1 % (0.0-2.0); RBC 4.19 Mil/uL (4.40-5.90); RED CELL DISTRIBUTION WIDTH 13.3 % (11.5-14.5); WHITE BLOOD COUNT 8.7 K/uL (4.8-10.8)
[2018-07-12 16:29] VITALS: RESP 20
--- NOTE | 2018-07-12 22:48 | CP.PCM.PN ---
Subjective - Date & Time of Evaluation Date of Evaluation: 07/12/18 Time of Evaluation: 09:40 - Subjective Subjective: dict Objective - Vital Signs/Intake and Output Vital Signs (last 24 hours): Temp Pulse Resp BP Pulse Ox 98.5 F 71 20 144/90 96 07/12/18 16:00 07/12/18 16:00 07/12/18 16:00 07/12/18 17:29 07/12/18 16:00 Intake and Output: 07/12/18 07/13/18 18:59 06:59 Intake Total 630 Balance 630 - Medications Medications: Current Medications Acetaminophen (Tylenol 325mg Tab) 650 mg PO Q4H PRN PRN Reason: Fever >100.4 F Last Admin: 07/11/18 16:14 Dose: 650 mg Allopurinol (Zyloprim) 100 mg PO DAILY [facility] Last Admin: 07/12/18 09:42 Dose: 100 mg Carvedilol (Coreg) 25 mg PO BID [facility] Last Admin: 07/12/18 17:29 Dose: 25 mg Enoxaparin Sodium (Lovenox) 40 mg SC DAILY [facility] Last Admin: 07/12/18 09:41 Dose: 40 mg Piperacillin Sod/Tazobactam Sod (Zosyn 3.375 Gm Iv Premix) 3.375 gm in 50 mls @ 200 mls/hr IVPB Q6H [facility]; Protocol Last Admin: 07/12/18 17:28 Dose: 200 mls/hr Gentamicin Sulfate 80 mg/ (Sodium Chloride) 102 mls @ 100 mls/hr IVPB Q8H [facility]; Protocol Last Admin: 07/12/18 21:20 Dose: 100 mls/hr Levothyroxine Sodium (Synthroid) 25 mcg PO DAILY@0630 [facility] Last Admin: 07/12/18 05:29 Dose: 25 mcg Ondansetron HCl (Zofran Inj) 4 mg IVP Q4 PRN PRN Reason: Nausea/Vomiting Oxycodone HCl (Oxycodone Immediate Release Tab) 5 mg PO Q6 PRN PRN Reason: Pain, severe (8-10) Rosuvastatin Calcium (Crestor) 5 mg PO HS [facility] Last Admin: 07/12/18 21:20 Dose: 5 mg Tramadol HCl (Ultram) 50 mg PO Q8H PRN PRN Reason: Pain, moderate (4-7) - Labs Labs: 07/12/18 14:08 07/12/18 07:46 PT 14.3 SECONDS (9.7-12.2) H 07/11/18 06:44 INR 1.3 07/11/18 06:44 APTT 36.5 SECONDS (21-34) H 07/11/18 06:44
--- NOTE | 2018-07-12 23:48 | CP.PCM.PN ---
Subjective - Date & Time of Evaluation Date of Evaluation: 07/12/18 Time of Evaluation: 23:47 - Subjective Subjective: CHIEF COMPLAINTS TODAY : # pod 2. oob ON CHAIR tmax 99.1 yesterday had fever to 102.3 c/o nausea w solid foods tolerating liquids. denies much abdominal pain ROS. HEENT : N. Resp : No cough, wheezing ,pleuritic CP ,or hemoptysis Cardio : No anginal CP, PND, orthopnea, palpitation GI : No abd.pain, +VE NAUSEA / NO VOMITING ,diarrhea or GI bleeding . CADD MANAGER : No headache, vertigo, focal deficit. Musculoskel : No joint swelling , Derm : No rash Psych : Normal affect. Ext : No swelling ,calf pain PE. Pt. is alert awake in no distress. V.S As noted in the chart Head ,ear nose,throat and eyes : Normal. Neck : Supple with normal carotids. Lungs: DECREASED BS AT BASES . Heart : S1 & S2 normal with S4. No murmur. Abd : Soft mild tenderness on palpation, with HYPOACTIVE BS. Neuro : Moves all ext. with no localized deficit. Ext : No edema with intact pulses.Non tender calves Derm : No rashes or decubitus ulcer. LABS/RADIOLOGY: CXR ;bilateral by basilar airspace consolidation changes LT >RT atelectasis vs infiltrate. Blood cultures 07/11/18 -ve for 24 hours. lfts total bili 3.1, direct bili 1.2, ast 113, ALT 116 : Objective - Vital Signs/Intake and Output Vital Signs (last 24 hours): Temp Pulse Resp BP Pulse Ox 98.5 F 71 20 144/90 96 07/12/18 16:00 07/12/18 16:00 07/12/18 16:00 07/12/18 17:29 07/12/18 16:00 Intake and Output: 07/12/18 07/13/18 18:59 06:59 Intake Total 630 Balance 630 - Medications Medications: Current Medications Acetaminophen (Tylenol 325mg Tab) 650 mg PO Q4H PRN PRN Reason: Fever >100.4 F Last Admin: 07/11/18 16:14 Dose: 650 mg Allopurinol (Zyloprim) 100 mg PO DAILY [facility] Last Admin: 07/12/18 09:42 Dose: 100 mg Carvedilol (Coreg) 25 mg PO BID [facility] Last Admin: 07/12/18 17:29 Dose: 25 mg Enoxaparin Sodium (Lovenox) 40 mg SC DAILY [facility] Last Admin: 07/12/18 09:41 Dose: 40 mg Piperacillin Sod/Tazobactam Sod (Zosyn 3.375 Gm Iv Premix) 3.375 gm in 50 mls @ 200 mls/hr IVPB Q6H [facility]; Protocol Last Admin: 07/12/18 17:28 Dose: 200 mls/hr Gentamicin Sulfate 80 mg/ (Sodium Chloride) 102 mls @ 100 mls/hr IVPB Q8H [facility]; Protocol Last Admin: 07/12/18 21:20 Dose: 100 mls/hr Levothyroxine Sodium (Synthroid) 25 mcg PO DAILY@0630 [facility] Last Admin: 07/12/18 05:29 Dose: 25 mcg Ondansetron HCl (Zofran Inj) 4 mg IVP Q4 PRN PRN Reason: Nausea/Vomiting Oxycodone HCl (Oxycodone Immediate Release Tab) 5 mg PO Q6 PRN PRN Reason: Pain, severe (8-10) Rosuvastatin Calcium (Crestor) 5 mg PO HS [facility] Last Admin: 07/12/18 21:20 Dose: 5 mg Tramadol HCl (Ultram) 50 mg PO Q8H PRN PRN Reason: Pain, moderate (4-7) - Labs Labs: 07/12/18 14:08 07/12/18 07:46 PT 14.3 SECONDS (9.7-12.2) H 07/11/18 06:44 INR 1.3 07/11/18 06:44 APTT 36.5 SECONDS (21-34) H 07/11/18 06:44 Assessment and Plan (1) Postoperative fever Status: Acute (2) Abdominal pain Status: Acute (3) Cholecystitis Status: Acute - Assessment and Plan (Free Text) Plan: POD # 2 S/P CHOLYCYSTECTOMY 07/10/18 DECREASE IV ZOSYN 3.375MG IVPB Q 8HRLYHRLY. 07/09/18 ADD IV GENTAMYCIN 160MG IVPB STAT DOSEAFTER BLOOD CULTURES. 07/11/18 F/U 8OMG IVPB Q 8HRLY FOR PSEUDOMONAL COVERAGE. F/U LFTS. PER SURGERY AND PMD.
[2018-07-13] MEDS: Piperacill/Tazo 3.375gm in Dex 3.375 GM/50 ML BAG IVPB SCH ×3 (00:30→17:23)
--- NOTE | 2018-07-13 01:58 | PN ---
DATE: 07/12/2018 SUBJECTIVE: The patient is afebrile today. He is on antibiotics. He is feeling better. Postop, he is on incentive spirometry. PHYSICAL EXAMINATION: VITAL SIGNS: Blood pressure 144/90, pulse 71, respiratory rate 20, temperature 98.5. LUNGS: Clear. ABDOMEN: Soft. Postop. ASSESSMENT: 1. Cholecystitis with persistent fever, resolved. 2. Dehydration. PLAN: Continue to monitor temperature. Monitor the patient. Srinivasa Sosa MD
[2018-07-13] MEDS ORDERED: Levothyroxine 25 MCG TAB PO SCH (06:30)
[2018-07-13 07:35] LABS: BASO % 0.3 % (0.0-2.0); EOS # 0.1 K/uL (0.0-0.7); EOS % 0.8 % (0.0-4.0); HEMOGLOBIN 12.7 g/dL (12.0-18.0); LYMPH # 1.3 K/uL (1.0-4.3); LYMPH % 16.1 % (20.0-40.0); MEAN CELL VOLUME 82.9 fL (80.0-94.0); MEAN CORPUSCULAR HEMOGLOBIN 28.9 pg (27.0-31.0); MEAN CORPUSCULAR HGB CONC 34.9 g/dL (33.0-37.0); MEAN PLATELET VOLUME 8.6 fL (7.2-11.7); MONO # 0.7 K/uL (0.0-0.8); MONO % 8.9 % (0.0-10.0); NEUT # 5.7 K/uL (1.8-7.0); NEUT % 73.9 % (50.0-75.0); NRBC % 0.1 % (0.0-2.0); RBC 4.39 Mil/uL (4.40-5.90); WHITE BLOOD COUNT 7.8 K/uL (4.8-10.8)
[2018-07-13 07:54] LABS: ALBUMIN 3.7 g/dL (3.5-5.0); ALT/SGPT 95 U/L (21-72); AST/SGOT 67 U/L (17-59); BILIRUBIN,DIRECT 0.9 mg/dL (0.0-0.4); BLOOD UREA NITROGEN 10 mg/dL (9-20); CALCIUM 8.8 mg/dl (8.6-10.4); GFR NON-AFRICAN AMERICAN > 60
--- NOTE | 2018-07-13 07:56 | CP.PCM.PN ---
Subjective - Date & Time of Evaluation Date of Evaluation: 07/13/18 Time of Evaluation: 07:10 - Subjective Subjective: General surgery progress note for Dr. Joshua Cesar, PGY-2 Pt seen/examined at bedside Pt sitting in chair at bedside. Denies abdominal pain, N & V, F & C. Tolerating diet. Objective - Vital Signs/Intake and Output Vital Signs (last 24 hours): Temp Pulse Resp BP Pulse Ox 99.1 F 69 20 122/84 97 07/13/18 07:36 07/13/18 07:36 07/13/18 07:36 07/13/18 07:36 07/13/18 07:36 Intake and Output: 07/13/18 07/13/18 06:59 18:59 Intake Total 390 Balance 390 - Medications Medications: Current Medications Acetaminophen (Tylenol 325mg Tab) 650 mg PO Q4H PRN PRN Reason: Fever >100.4 F Last Admin: 07/11/18 16:14 Dose: 650 mg Allopurinol (Zyloprim) 100 mg PO DAILY [facility] Last Admin: 07/12/18 09:42 Dose: 100 mg Carvedilol (Coreg) 25 mg PO BID [facility] Last Admin: 07/12/18 17:29 Dose: 25 mg Enoxaparin Sodium (Lovenox) 40 mg SC DAILY [facility] Last Admin: 07/12/18 09:41 Dose: 40 mg Gentamicin Sulfate 80 mg/ (Sodium Chloride) 102 mls @ 100 mls/hr IVPB Q8H [facility]; Protocol Last Admin: 07/13/18 05:26 Dose: 100 mls/hr Piperacillin Sod/Tazobactam Sod (Zosyn 3.375 Gm Iv Premix) 3.375 gm in 50 mls @ 100 mls/hr IVPB Q8H [facility]; Protocol Last Admin: 07/13/18 00:30 Dose: Not Given Levothyroxine Sodium (Synthroid) 25 mcg PO DAILY@0630 [facility] Last Admin: 07/13/18 05:30 Dose: 25 mcg Ondansetron HCl (Zofran Inj) 4 mg IVP Q4 PRN PRN Reason: Nausea/Vomiting Oxycodone HCl (Oxycodone Immediate Release Tab) 5 mg PO Q6 PRN PRN Reason: Pain, severe (8-10) Rosuvastatin Calcium (Crestor) 5 mg PO HS [facility] Last Admin: 07/12/18 21:20 Dose: 5 mg Tramadol HCl (Ultram) 50 mg PO Q8H PRN PRN Reason: Pain, moderate (4-7) - Labs Labs: 07/13/18 07:15 07/12/18 07:46 PT 14.3 SECONDS (9.7-12.2) H 07/11/18 06:44 INR 1.3 07/11/18 06:44 APTT 36.5 SECONDS (21-34) H 07/11/18 06:44 - Constitutional Appears: Non-toxic, No Acute Distress - Head Exam Head Exam: ATRAUMATIC, NORMAL INSPECTION, NORMOCEPHALIC - Eye Exam Eye Exam: EOMI, Normal appearance - ENT Exam ENT Exam: Mucous Membranes Moist, Normal Exam - Neck Exam Neck Exam: Full ROM, Normal Inspection - Respiratory Exam Respiratory Exam: NORMAL BREATHING PATTERN - Cardiovascular Exam Cardiovascular Exam: REGULAR RHYTHM, +S1, +S2 - GI/Abdominal Exam GI & Abdominal Exam: Soft. absent: Distended, Firm, Guarding, Rigid, Tenderness - Extremities Exam Extremities Exam: Full ROM, Normal Inspection - Neurological Exam Neurological Exam: Alert, Awake, CN II-XII Intact, Oriented x3 - Psychiatric Exam Psychiatric exam: Normal Affect, Normal Mood - Skin Skin Exam: Dry, Intact, Normal Color, Warm Additional comments: Abdominal incision sites with dressings removed, sites without erythema or fluctuance Assessment and Plan - Assessment and Plan (Free Text) Assessment: 48M POD#3 s/p lap cholecystectomy Plan: Pain control PRN Continue diet Abx as per ID OOBTC Ambulate HIDA scan negative Cleared for d/c home from surgical standpoint DW Dr. Guido Cesar, PGY-2
[2018-07-13 09:15] VITALS: PULSE 72
[2018-07-13] MEDS: Enoxaparin 40 mg Syringe SC SCH (09:15)
--- NOTE | 2018-07-13 12:16 | CP.PCM.PN ---
Subjective - Date & Time of Evaluation Date of Evaluation: 07/13/18 Time of Evaluation: 12:16 - Subjective Subjective: afebrile,TMAX 99.3 VSS feeling better. tolerating diet OOB ON CHAIR. LABS; REVIEWED. ALL CULTURES -VE LFTS IMPROVING. PLAN; NOTED CLEARED BY SURGERY. DC IV ABX . PO VANTIN 200MG PO BID X 5DAYS. PO FLORSTAR 250MG CAP PO HS X 5DAYS. CASE DISCUSSED WITH TUBE MAKING MACHINE OPERATOR MR RUSSO. Objective - Vital Signs/Intake and Output Vital Signs (last 24 hours): Temp Pulse Resp BP Pulse Ox 99.1 F 72 20 116/69 97 07/13/18 07:36 07/13/18 09:14 07/13/18 07:36 07/13/18 09:16 07/13/18 07:36 Intake and Output: 07/13/18 07/13/18 06:59 18:59 Intake Total 390 Balance 390 - Medications Medications: Current Medications Acetaminophen (Tylenol 325mg Tab) 650 mg PO Q4H PRN PRN Reason: Fever >100.4 F Last Admin: 07/11/18 16:14 Dose: 650 mg Allopurinol (Zyloprim) 100 mg PO DAILY [facility] Last Admin: 07/13/18 09:15 Dose: 100 mg Carvedilol (Coreg) 25 mg PO BID [facility] Last Admin: 07/13/18 09:16 Dose: 25 mg Enoxaparin Sodium (Lovenox) 40 mg SC DAILY [facility] Last Admin: 07/13/18 09:15 Dose: 40 mg Gentamicin Sulfate 80 mg/ (Sodium Chloride) 102 mls @ 100 mls/hr IVPB Q8H [facility]; Protocol Last Admin: 07/13/18 12:15 Dose: 100 mls/hr Piperacillin Sod/Tazobactam Sod (Zosyn 3.375 Gm Iv Premix) 3.375 gm in 50 mls @ 100 mls/hr IVPB Q8H [facility]; Protocol Last Admin: 07/13/18 08:32 Dose: 100 mls/hr Levothyroxine Sodium (Synthroid) 25 mcg PO DAILY@0630 [facility] Last Admin: 07/13/18 05:30 Dose: 25 mcg Ondansetron HCl (Zofran Inj) 4 mg IVP Q4 PRN PRN Reason: Nausea/Vomiting Oxycodone HCl (Oxycodone Immediate Release Tab) 5 mg PO Q6 PRN PRN Reason: Pain, severe (8-10) Rosuvastatin Calcium (Crestor) 5 mg PO HS [facility] Last Admin: 07/12/18 21:20 Dose: 5 mg Tramadol HCl (Ultram) 50 mg PO Q8H PRN PRN Reason: Pain, moderate (4-7) - Labs Labs: 07/13/18 07:15 07/13/18 07:15 PT 14.3 SECONDS (9.7-12.2) H 07/11/18 06:44 INR 1.3 07/11/18 06:44 APTT 36.5 SECONDS (21-34) H 07/11/18 06:44 - Constitutional Appears: No Acute Distress - Head Exam Head Exam: NORMAL INSPECTION - Eye Exam Eye Exam: EOMI, PERRL - ENT Exam ENT Exam: Normal Oropharynx - Neck Exam Neck Exam: Normal Inspection - Respiratory Exam Respiratory Exam: Clear to Ausculation Bilateral, NORMAL BREATHING PATTERN - Cardiovascular Exam Cardiovascular Exam: REGULAR RHYTHM, +S1, +S2 - GI/Abdominal Exam GI & Abdominal Exam: Soft, Normal Bowel Sounds. absent: Tenderness - Extremities Exam Extremities Exam: absent: Calf Tenderness, Pedal Edema - Neurological Exam Neurological Exam: Awake, CN II-XII Intact, Oriented x3, Reflexes Normal - Psychiatric Exam Psychiatric exam: Normal Mood - Skin Skin Exam: Normal Color, Warm Assessment and Plan (1) Postoperative fever Status: Acute (2) Abdominal pain Status: Acute (3) Cholecystitis Status: Acute - Assessment and Plan (Free Text) Plan: POD # 3 S/P CHOLYCYSTECTOMY 07/10/18 D/C IV ABX PO VANTIN 200MG PO BID X 5DAYS. F/U LFTS OPD . F/U IN 1WEEK PER SURGERY AND PMD.
[2018-07-13] MEDS ORDERED: Potassium Chloride 20 mEq ER Tab PO ONE (12:45)
[2018-07-13 16:12] VITALS: TEMP 98.9; O2SAT 95
--- NOTE | 2018-07-13 16:27 | NM ---
Date of service: 07/13/2018 PROCEDURE: Nuclear Medicine Hepatobiliary Scan HISTORY: hyperbilirubinemia s/p lap maite COMPARISON: 07/09/2018, preoperative abdominal ultrasound. TECHNIQUE: 7.1 mCi of technetium 99m Mebrofenin was administered intravenously. Planar images of the abdomen were obtained at 5 min intervals to 60 mins. Delayed images were also obtained. Immediate studies, delayed studies, upright oblique views also obtained. FINDINGS: LIVER: Timely and homogenous uptake. COMMON BILE DUCT: identified at 15 mins. GALLBLADDER: No abnormalities in the gallbladder fossa status post cholecystectomy. SMALL BOWEL: Identified at 15 mins. IMPRESSION: Unremarkable accumulation of radionuclide in the liver, excretion into the common bile duct and small bowel. No evidence of bile leak on the present study.
--- NOTE | 2018-07-13 16:55 | CP.PCM.PN ---
Subjective - Date & Time of Evaluation Date of Evaluation: 07/13/18 Time of Evaluation: 16:55 Objective - Vital Signs/Intake and Output Vital Signs (last 24 hours): Temp Pulse Resp BP Pulse Ox 98.9 F 72 20 145/92 H 95 07/13/18 16:11 07/13/18 16:11 07/13/18 16:11 07/13/18 16:11 07/13/18 16:11 Intake and Output: 07/13/18 07/13/18 06:59 18:59 Intake Total 390 Balance 390 - Medications Medications: Current Medications Acetaminophen (Tylenol 325mg Tab) 650 mg PO Q4H PRN PRN Reason: Fever >100.4 F Last Admin: 07/11/18 16:14 Dose: 650 mg Allopurinol (Zyloprim) 100 mg PO DAILY [facility] Last Admin: 07/13/18 09:15 Dose: 100 mg Carvedilol (Coreg) 25 mg PO BID [facility] Last Admin: 07/13/18 09:16 Dose: 25 mg Enoxaparin Sodium (Lovenox) 40 mg SC DAILY [facility] Last Admin: 07/13/18 09:15 Dose: 40 mg Gentamicin Sulfate 80 mg/ (Sodium Chloride) 102 mls @ 100 mls/hr IVPB Q8H [facility]; Protocol Last Admin: 07/13/18 12:15 Dose: 100 mls/hr Piperacillin Sod/Tazobactam Sod (Zosyn 3.375 Gm Iv Premix) 3.375 gm in 50 mls @ 100 mls/hr IVPB Q8H [facility]; Protocol Last Admin: 07/13/18 08:32 Dose: 100 mls/hr Levothyroxine Sodium (Synthroid) 25 mcg PO DAILY@0630 [facility] Last Admin: 07/13/18 05:30 Dose: 25 mcg Ondansetron HCl (Zofran Inj) 4 mg IVP Q4 PRN PRN Reason: Nausea/Vomiting Oxycodone HCl (Oxycodone Immediate Release Tab) 5 mg PO Q6 PRN PRN Reason: Pain, severe (8-10) Rosuvastatin Calcium (Crestor) 5 mg PO HS [facility] Last Admin: 07/12/18 21:20 Dose: 5 mg Tramadol HCl (Ultram) 50 mg PO Q8H PRN PRN Reason: Pain, moderate (4-7) - Labs Labs: 05/31/19 07:15 07/13/18 07:15 PT 14.3 SECONDS (9.7-12.2) H 07/11/18 06:44 INR 1.3 07/11/18 06:44 APTT 36.5 SECONDS (21-34) H 07/11/18 06:44 Assessment and Plan - Assessment and Plan (Free Text) Assessment: OLLOW UP WITH DR MOROCHO IN HIS OFFICE FOLLOW UP WITH DR GOYAL IN HER OFFICE IN ONE WEEK CONTINUE HOME MEDICATION NEWW PRESCRIPTION GIVEN VANTIN 200 MG PO BID FOR 5 DAYS FLORASTOR 250 MG PO AT HS FOR 5 DAYS Ok to resume normal diet Continue to walk Do not sit in water Ok to shower, washing abdomen gently with soap and water- do not scrub You have special glue over your surgical sites- do not pick it off, it will fall off on it's own No heavy lifting for 4-[address] Lora's office for a post operative check in the next 1-[address] MOROCHO OR GO TO THE EMERGENCY ROOM IF SYMPTOM RETURN OR WORSENING
[2018-07-13 17:24] VITALS: BP 145/90
--- NOTE | 2018-07-14 05:26 | CP.PCM.DIS ---
Provider - Provider Date of Admission: 07/09/18 06:04 Attending physician: Srinivasa Sosa MD Consults: 07/09/18 05:17 General Surgery Consult Stat Comment: Consulting Provider: Bk Lora Consulting Physician: Bk Lora Reason for Consult: acute calculous cholecystitis 07/11/18 18:03 Infectious Disease Consult Routine Comment: Consulting Provider: Jovita Rivera Consulting Physician: Jovita Rivera Reason for Consult: fever Time Spent in preparation of Discharge (in minutes): 45 Hospital Course - Lab Results Lab Results: Micro Results 07/11/18 14:29 Blood Blood Culture - Preliminary NO GROWTH AFTER 48 HOURS 07/11/18 14:29 Blood Blood Culture - Preliminary NO GROWTH AFTER 48 HOURS 07/12/18 05:34 Urine,Clean Catch Urine Culture - Final No Growth (<1,000 CFU/ML) Most Recent Lab Values WBC 7.8 K/uL (4.8-10.8) 07/13/18 07:15 RBC 4.39 Mil/uL (4.40-5.90) L 07/13/18 07:15 Hgb 12.7 g/dL (12.0-18.0) 07/13/18 07:15 Hct 36.4 % (35.0-51.0) 07/13/18 07:15 MCV 82.9 fL (80.0-94.0) 07/13/18 07:15 MCH 28.9 pg (27.0-31.0) 07/13/18 07:15 MCHC 34.9 g/dL (33.0-37.0) 07/13/18 07:15 RDW 13.0 % (11.5-14.5) 07/13/18 07:15 Plt Count 208 K/uL (130-400) 07/13/18 07:15 MPV 8.6 fL (7.2-11.7) 07/13/18 07:15 Neut % (Auto) 73.9 % (50.0-75.0) 07/13/18 07:15 Lymph % (Auto) 16.1 % (20.0-40.0) L 07/13/18 07:15 [place] % (Auto) 8.9 % (0.0-10.0) 07/13/18 07:15 Eos % (Auto) 0.8 % (0.0-4.0) 07/13/18 07:15 Baso % (Auto) 0.3 % (0.0-2.0) 07/13/18 07:15 Neut # (Auto) 5.7 K/uL (1.8-7.0) 07/13/18 07:15 Lymph # (Auto) 1.3 K/uL (1.0-4.3) 07/13/18 07:15 [place]vier # (Auto) 0.7 K/uL (0.0-0.8) 07/13/18 07:15 Eos # (Auto) 0.1 K/uL (0.0-0.7) 07/13/18 07:15 Baso # (Auto) 0.0 K/uL (0.0-0.2) 07/13/18 07:15 Neutrophils % (Manual) 82 % (50-75) H 07/11/18 06:44 Band Neutrophils % 1 % (0-2) 07/10/18 06:17 Lymphocytes % (Manual) 11 % (20-40) L 07/11/18 06:44 Monocytes % (Manual) 7 % (0-10) 07/11/18 06:44 Platelet Estimate Normal (NORMAL) 07/11/18 06:44 RBC Morphology Normal 07/11/18 06:44 PT 14.3 SECONDS (9.7-12.2) H 07/11/18 06:44 INR 1.3 07/11/18 06:44 APTT 36.5 SECONDS (21-34) H 07/11/18 06:44 Sodium 135 mmol/L (132-148) 07/13/18 07:15 Potassium 3.4 mmol/L (3.6-5.2) L 07/13/18 07:15 Chloride 101 mmol/L (98-107) 07/13/18 07:15 Carbon Dioxide 26 mmol/L (22-30) 07/13/18 07:15 Anion Gap 12 (10-20) 07/13/18 07:15 BUN 10 mg/dL (9-20) 07/13/18 07:15 Creatinine 0.9 mg/dL (0.8-1.5) 07/13/18 07:15 Est GFR ( Amer) > 60 07/13/18 07:15 Est GFR (Non-Af Amer) > 60 07/13/18 07:15 Random Glucose 96 mg/dL (75-110) 07/13/18 07:15 Calcium 8.8 mg/dl (8.6-10.4) 07/13/18 07:15 Phosphorus 2.6 mg/dL (2.5-4.5) 07/10/18 06:17 Magnesium 1.7 mg/dL (1.6-2.3) 07/10/18 06:17 Total Bilirubin 2.4 mg/dL (0.2-1.3) H 07/13/18 07:15 Direct Bilirubin 0.9 mg/dL (0.0-0.4) H 07/13/18 07:15 AST 67 U/L (17-59) H D 07/13/18 07:15 ALT 95 U/L (21-72) H 07/13/18 07:15 Alkaline Phosphatase 80 U/L (38-126) 07/13/18 07:15 Total Protein 7.6 g/dL (6.3-8.3) 07/13/18 07:15 Albumin 3.7 g/dL (3.5-5.0) 07/13/18 07:15 Globulin 3.8 gm/dL (2.2-3.9) 07/13/18 07:15 Albumin/Globulin Ratio 1.0 (1.0-2.1) 07/13/18 07:15 Lipase 105 U/L (23-300) 07/09/18 02:45 Blood Type O POSITIVE 07/10/18 06:17 Antibody Screen Negative 07/10/18 06:17 Discharge Exam - Head Exam Head Exam: ATRAUMATIC, NORMAL INSPECTION, NORMOCEPHALIC Discharge Plan - Discharge Medications Prescriptions: Saccharomyces Boulardii [Florastor] 250 mg PO HS 5 Days capsule Cefpodoxime [Vantin] 200 mg PO BID 5 Days tab - Follow Up Plan Condition: STABLE Disposition: HOME/ ROUTINE Instructions: Saccharomyces boulardii, Cholecystectomy, Laparoscopic Surgery, Coughing and Deep Breathing After Surgery, Cefpodoxime Additional Instructions: FOLLOW UP WITH DR SOSA IN HIS OFFICE FOLLOW UP WITH DR RIVERA IN HER OFFICE IN ONE WEEK CONTINUE HOME MEDICATION NEWW PRESCRIPTION GIVEN VANTIN 200 MG PO BID FOR 5 DAYS FLORASTOR 250 MG PO AT HS FOR 5 DAYS Ok to resume normal diet Continue to walk Do not sit in water Ok to shower, washing abdomen gently with soap and water- do not scrub You have special glue over your surgical sites- do not pick it off, it will fall off on it's own No heavy lifting for 4-[address] Lora's office for a post operative check in the next 1-[address] SOSA OR GO TO THE EMERGENCY ROOM IF SYMPTOM RETURN OR WORSENING Referrals: Bk Lora MD [Staff Provider] - Jovita Rivera MD [Staff Provider] - Srinivasa Sosa MD [Staff Provider] -
--- NOTE | 2018-07-16 10:07 | DS ---
DISCHARGE DIAGNOSES: Acute cholecystitis, hypertension, known obesity. HISTORY OF PRESENT ILLNESS: This is a 48-year-old male with history of right upper quadrant pain, found to have acute cholecystitis. He was afebrile. He was on ICU with antibiotics. The patient then underwent cholecystectomy after a positive and the patient is doing better. The patient had fever after surgery, but his fever has resolved. He is feeling better. PHYSICAL EXAMINATION: VITAL SIGNS: His blood pressure is 145/92, pulse 72, respiratory rate 20 and temperature 98.9. LUNGS: Clear. CARDIOVASCULAR: S1 and S2, regular. ABDOMEN: Soft. ASSESSMENT: Cholecystitis and hypertension. PLAN: Discharge the patient in no acute distress. Srinivasa Sosa MD
== END 2018-07-13 18:21 | disposition home or self-care (01) | DRG 419 ==
LOC: C.ER 01:00 → C.9E 06:04 → C.5S 06:49
PROVIDERS: ADMIT Internal Medicine; ATTEND Internal Medicine
PROC: 0FT44ZZ Resection of Gallbladder, Percutaneous Endoscopic Approach (ICD-10-PCS; principal; 2018-07-10 12:00)
DX: K80.12 Calculus of gallbladder with acute and chronic cholecystitis without obstruction (principal); E78.5 Hyperlipidemia, unspecified; I10 Essential (primary) hypertension; E86.0 Dehydration; E66.9 Obesity, unspecified; M10.9 Gout, unspecified; G47.33 Obstructive sleep apnea (adult) (pediatric); E03.9 Hypothyroidism, unspecified; R50.82 Postprocedural fever